=== PATIENT | male | born 1985 | race Caucasian/White ===

== ENCOUNTER → 2017-06-18 | Outpatient (CLI) | payer OTHER ==
[2017-06-18 09:04] LABS: AUTOMATED NEUTROPHIL # 4.9 TH/MM3 (1.8-7.7); BASOPHIL % 0.6 % (0.0-2.0); EOSINOPHIL # 0.3 TH/MM3 (0-0.4); EOSINOPHIL % 3.5 % (0.0-4.0); HEMOGLOBIN 16.8 GM/DL (13.0-17.0); LYMPHOCYTE # 2.5 TH/MM3 (1.0-4.8); MEAN CORPUSCULAR HEMOGLOBIN 31.5 PG (27.0-34.0); MONO % 7.5 % (0.0-8.0); MONOCYTE # 0.6 TH/MM3 (0-0.9); NEUT % 58.4 % (16.0-70.0); PLATELET COUNT 311 TH/MM3 (150-450); RED BLOOD COUNT 5.33 MIL/MM3 (4.50-5.90); RED CELL DISTRIBUTION WIDTH 12.8 % (11.6-17.2); WHITE BLOOD COUNT 8.4 TH/MM3 (4.0-11.0)
[2017-06-18 09:26] LABS: ALBUMIN 3.7 GM/DL (3.4-5.0); AST (GOT) 16 U/L (15-37); BICARBONATE 30.8 MEQ/L (21.0-32.0); BLOOD UREA NITROGEN 14 MG/DL (7-18); CALCIUM 8.8 MG/DL (8.5-10.1); CHLORIDE 105 MEQ/L (98-107); CREATININE 0.92 MG/DL (0.60-1.30); GLOMERULAR FILTRATION RATE 96 ML/MIN (>89); GLUCOSE,FASTING 146 MG/DL (74-99); SODIUM (NA) 140 MEQ/L (136-145)
[2017-06-18 09:27] LABS: ALT (GPT) 28 U/L (12-78); CHOLESTEROL 190 MG/DL (120-200); TRIGLYCERIDES 98 MG/DL (42-150)
[2017-06-18 09:30] LABS: ALKALINE PHOSPHATASE 132 U/L (45-117); CHOLESTEROL/ HDL RATIO 4.13 RATIO; HDL CHOLESTEROL 45.9 MG/DL (40.0-60.0); LDL CHOLESTEROL 125 MG/DL (0-99); TOTAL BILIRUBIN ADULT 0.7 MG/DL (0.2-1.0); TOTAL PROTEIN 7.2 GM/DL (6.4-8.2)
[2017-06-18 18:24] LABS: HEMOGLOBIN A1C 7.9 % (4.3-6.0)
== END ==
LOC: CLAB 08:29
PROVIDERS: ATTEND Family Medicine
DX: E10.9 Type 1 diabetes mellitus without complications (principal)
CPT/HCPCS: 36415; 80053; 80061; 82043; 83036; 85025